=== PATIENT | male | born 1950 | race Caucasian/White ===

== ENCOUNTER 2023-07-18 11:03 | Emergency (ER) | payer OTHER | END 2023-07-18 12:20 | disposition home or self-care (01) | LOC: MADERS 11:03 | DX: J00 Acute nasopharyngitis [common cold] (principal); E78.00 Pure hypercholesterolemia, unspecified; Z79.899 Other long term (current) drug therapy | CPT/HCPCS: 71045 ==

== ENCOUNTER 2023-11-01 12:53 | Emergency (ER) | payer MEDICARE, OTHER ==
[2023-11-01 14:14] LABS: Prothrombin Time 13.6 sec (12.0-14.7)
[2023-11-01 14:15] LABS: PTT 29.2 sec (22.9-36.1)
[2023-11-01 14:19] LABS: SARS-CoV-2 E Target Negative; SARS-CoV-2 N2 Target Negative; SARS-CoV-2 NAA Rapid Test Not Detected (NotDetected); SARS-CoV-2 RdRP gene Negative
[2023-11-01 14:23] LABS: Band 2 % (5-11); Eosinophils 1 % (0-10); Hematocrit 44.8 % (42.0-52.0); Hemoglobin 14.7 g/dL (14.0-18.0); Lymphocytes 3 % (21-51); MDiff Complete? YES; Manual Diff?? YES; Mean Corpuscular HGB CONC 32.8 g/dL (32.0-36.0); Mean Corpuscular Hemoglobin 31.7 pg (27.0-31.0); Mean Corpuscular Volume 96.7 fl (78.0-98.0); Mean Platelet Volume 9.9 fL (7.4-10.4); Monocytes 2 % (0-10); Neutrophil 87 % (42-75); Platelet Count 174 10x3/uL (130-400); RBC Distribution Width 12.2 % (11.5-14.5); RBC Morph Comment Within Normal Limits; Reactive Lymphocytes 5 % (0-10); Red Blood Cell (RBC) Count 4.63 mill/uL (4.70-6.10); White Blood Cell (WBC) Count 10.5 10x3/uL (4.8-10.8)
[2023-11-01 14:24] LABS: ALT (SGPT) 22 U/L (8-55); AST (SGOT) 15 U/L (5-34); Albumin 3.8 g/dL (3.4-4.8); Alkaline Phosphatase 62 U/L (40-110); Anion Gap 16 mmol/L (10-20); BUN (Urea Nitrogen) 19 mg/dL (8.4-25.7); Bilirubin, Total 1.1 mg/dL (0.2-1.2); Calc. Creatinine Clearance 0 mL/min (70-130); Calcium 9.3 mg/dL (7.8-10.44); Carbon Dioxide 22 mmol/L (23-31); Chloride 108 mmol/L (98-107); Estimated GFR 61; Globulin 3.2 g/dL (2.4-3.5); Glucose 117 mg/dL (83-110); Platelet Adequacy Comment Appears Adequate; Potassium 3.6 mmol/L (3.5-5.1); Sodium 142 mmol/L (136-145)
[2023-11-01] MEDS ORDERED: Sodium Chloride 0.9% 500 ML ONE (14:30)
[2023-11-01] MEDS ORDERED: Benzonatate 100 MG CAP ONE (14:30)
[2023-11-01] MEDS ORDERED: Albuterol 200 PUFF (6.7GM INHALER) ONE (14:30)
== END 2023-11-01 15:44 | disposition home or self-care (01) ==
LOC: MADERS 12:53
DX: J20.9 Acute bronchitis, unspecified (principal); E78.00 Pure hypercholesterolemia, unspecified; Z79.899 Other long term (current) drug therapy
CPT/HCPCS: 71046; 80053; 83605; 85025; 85610; 85730; 87804; 93005; 94760; J7030; U0002